=== PATIENT | female | born 1980 | race Caucasian/White ===

== ENCOUNTER 2019-01-29 10:11 | Emergency (ER) | payer OTHER ==
[~2019-01-29] VITALS: Ht 170.2 cm; Wt 62.1 kg
[~2019-01-29 10:11] MED LIST: ALPRAZOLAM0.25 MG PO; ENALAPRIL MALEA10 MG PO
[2019-01-29] MEDS ORDERED: COZAAR100 MG (10:20)
[2019-01-29] MEDS ORDERED: TOPROL XL50 MG (10:20)
[2019-01-29] MEDS ORDERED: SYNTHROID100 MCG (10:20)
[2019-01-29] MEDS ORDERED: MEDROLPACK PO (12:07)
[2019-01-29] MEDS ORDERED: ZYRTEC10 MG PO (12:07)
== END 2019-01-29 12:21 | disposition home or self-care (01) ==
LOC: ER 10:11
DX: R21 Rash and other nonspecific skin eruption (principal)

== ENCOUNTER 2022-10-18 09:29 | Emergency (ER) | payer OTHER ==
[~2022-10-18] VITALS: Ht 167.6 cm; Wt 56.7 kg
[~2022-10-18 09:29] MED LIST changes: +COZAAR100 MG; +MEDROLPACK PO; +SYNTHROID100 MCG; +TOPROL XL50 MG; +ZYRTEC10 MG PO
[2022-10-18] MEDS ORDERED: KETO10TA2 PO (11:54)
== END 2022-10-18 12:38 | disposition home or self-care (01) ==
LOC: ER 09:29
DX: S82.52XA Displaced fracture of medial malleolus of left tibia, initial encounter for closed fracture (principal); W19.XXXA Unspecified fall, initial encounter; Y93.9 Activity, unspecified; Y92.018 Other place in single-family (private) house as the place of occurrence of the external cause; Y99.9 Unspecified external cause status; M79.672 Pain in left foot; I10 Essential (primary) hypertension; E03.9 Hypothyroidism, unspecified

== ENCOUNTER 2022-10-25 07:38 | Outpatient (CLI) | payer OTHER ==
[~2022-10-25 07:38] MED LIST changes: +KETO10TA2 PO
== END 2022-10-25 07:45 | disposition home or self-care (01) ==
LOC: RAD 07:38
PROVIDERS: ATTEND Orthopaedic Surgery
DX: M25.572 Pain in left ankle and joints of left foot (principal); M79.672 Pain in left foot

== ENCOUNTER 2022-11-01 09:19 | Outpatient (CLI) | payer OTHER | END 2022-11-01 09:27 | disposition home or self-care (01) | LOC: RAD 09:19 → EDBD 09:19 → RAD 09:27 | PROVIDERS: ATTEND Orthopaedic Surgery | DX: M79.672 Pain in left foot (principal); M25.572 Pain in left ankle and joints of left foot ==

== ENCOUNTER 2022-12-11 13:19 | Outpatient (CLI) | payer OTHER | END 2022-12-11 13:21 | disposition home or self-care (01) | LOC: NUCLEAR 13:19 | PROVIDERS: ATTEND Orthopaedic Surgery | DX: M81.0 Age-related osteoporosis without current pathological fracture (principal) ==

== ENCOUNTER 2024-12-31 10:16 | Outpatient (CLI) | payer OTHER | END 2024-12-31 10:18 | disposition home or self-care (01) | LOC: NUCLEAR 10:16 | PROVIDERS: ATTEND Orthopaedic Surgery Orthopaedic Surgery of the Spine | DX: M81.0 Age-related osteoporosis without current pathological fracture (principal) ==